=== PATIENT | male | born 1990 | race Caucasian/White ===

== ENCOUNTER 2021-11-23 08:49 | Outpatient (CLI) | payer BC, SELFPAY ==
[2021-11-23 08:55] VITALS: BP 120/77; PULSE 75; RESP 18; TEMP 36.3; O2SAT 98
[2021-11-23 09:21] VITALS: BMI 36.2
[2021-11-23 09:35] VITALS: BP 117/71; PULSE 64; RESP 17; TEMP 36.2; O2SAT 94
[2021-11-23 10:39] VITALS: BP 124/78; PULSE 61; RESP 18; TEMP 36.4; O2SAT 96
== END 2021-11-23 08:50 | disposition home or self-care (01) ==
LOC: OPS 08:54
PROVIDERS: Visit Provider Physician Assistant
DX: U07.1 COVID-19 (principal); E84.9 Cystic fibrosis, unspecified
CPT/HCPCS: 96365